=== PATIENT | female | born 1955 | race Caucasian/White ===

== ENCOUNTER → 2021-07-11 | Day surgery (SDC) | payer BC ==
[~2021-07-11] MED LIST: B12 PO; BUPROPION XL150 MG PO; DESYREL 50 MG T50 MG PO; FENOFIBRATE48 MG PO; GLUCOPHAGE 500500 MG PO; LEVOCETIRIZINE D5 MG PO; LEVOTHYROXINE50 MCG PO; MAGNESIUM PO; NALTREXONE HCL50 MG PO; TRAZODONE HCL50 MG PO; VITAMIN D3125 MCG PO
== END | disposition home or self-care (01) ==
LOC: OR 06:16
DX: K57.30 Diverticulosis of large intestine without perforation or abscess without bleeding (principal); K64.1 Second degree hemorrhoids; R19.7 Diarrhea, unspecified; E03.9 Hypothyroidism, unspecified; F17.210 Nicotine dependence, cigarettes, uncomplicated; Z90.49 Acquired absence of other specified parts of digestive tract; F41.9 Anxiety disorder, unspecified; Z79.84 Long term (current) use of oral hypoglycemic drugs; Z20.822 Contact with and (suspected) exposure to COVID-19; E11.9 Type 2 diabetes mellitus without complications
CPT/HCPCS: 82962; J2704; J7040; U0002